=== PATIENT | male | born 1960 | race Caucasian/White ===

== ENCOUNTER 2023-06-08 07:05 | Outpatient (CLI) | payer OTHER | END 2023-06-08 07:06 | disposition home or self-care (01) | LOC: NAV RAD 07:05 | PROVIDERS: ATTEND Nurse Practitioner Family | DX: M17.0 Bilateral primary osteoarthritis of knee (principal); M25.551 Pain in right hip; M16.11 Unilateral primary osteoarthritis, right hip ==